=== PATIENT | male | born 2005 | race Caucasian/White ===

== ENCOUNTER 2023-04-07 01:14 | Emergency (ER) | payer OTHER ==
[2023-04-07 01:24] VITALS: BP 156/87; PULSE 96; RESP 20; TEMP 101.1; BMI 23.6
[2023-04-07] MEDS ORDERED: AMOX TR/POT CLAV 875MG/125MG TABLETS (FP) PO ONE (02:24)
[2023-04-07] MEDS ORDERED: IBUPROFEN 600 MG TABLET (FP) PO ONE ×2 (02:25→02:44)
[2023-04-07] MEDS ORDERED: AMOX TR/POT CLAV 875MG/125MG TABLETS (FP) ONE (02:44)
== END 2023-04-07 03:59 | disposition home or self-care (01) ==
LOC: JER 01:14
DX: R50.9 Fever, unspecified (principal); R51.9 Headache, unspecified; J01.00 Acute maxillary sinusitis, unspecified; Z20.822 Contact with and (suspected) exposure to COVID-19
CPT/HCPCS: 0241U-QW; 99283-25